=== PATIENT | female | born 1950 | race Caucasian/White ===

== ENCOUNTER 2017-11-04 10:19 | Emergency (ER) | payer MEDICARE ==
[2017-11-04 12:48] LABS: #Eosinphils 0.1 thou/uL (0.0-0.7); #Lymphocytes 1.4 thou/uL (1.20-3.40); #Monocytes 0.6 thou/uL (0.11-0.59); #Neutrophils 3.6 thou/uL (1.40-6.50); %Basophils 0.2 % (0.0-1.0); %Eosinophils 1.9 % (0.0-10.0); %Lymphocytes 23.5 % (21.0-51.0); %Monocytes 11.2 % (0.0-10.0); %Neutrophils 63.2 % (42.0-75.0); Hemoglobin 13.2 g/dL (12.0-16.0); Mean Corpuscular HGB CONC 32.2 g/dL (32.0-36.0); Mean Corpuscular Hemoglobin 28.6 pg (27.0-31.0); Mean Corpuscular Volume 88.7 fl (81.0-99.0); Mean Platelet Volume 7.7 fL (7.4-10.4); Platelet Count 215 thou/uL (130-400); Red Blood Cell (RBC) Count 4.64 mill/uL (4.20-5.40); White Blood Cell (WBC) Count 5.7 thou/uL (4.8-10.8)
[2017-11-04 13:06] LABS: ALT (SGPT) 30 U/L (8-55); AST (SGOT) 23 U/L (5-34); Albumin 4.1 g/dL (3.4-4.8); Alkaline Phosphatase 67 U/L (40-150); Anion Gap 14 mmol/L (10-20); BUN (Urea Nitrogen) 11 mg/dL (9.8-20.1); Bilirubin, Total 0.4 mg/dL (0.2-1.2); Calc. Creatinine Clearance 0 mL/min (70-130); Calcium 10.3 mg/dL (7.8-10.44); Carbon Dioxide 30 mmol/L (23-31); Chloride 98 mmol/L (98-107); Estimated GFR-MDRD 79; Globulin 2.7 g/dL (2.4-3.5); Glucose 103 mg/dL (80-115); Lipase 18 U/L (8-78); Protein, Total 6.8 g/dL (6.0-8.3); Sodium 138 mmol/L (136-145)
[2017-11-04] MEDS ORDERED: Ondansetron HCl/PF 4 MG/2 ML Vial ONE (13:22)
[2017-11-04 14:29] LABS: CKMB 0.5 ng/mL (0-6.6); Troponin I Less than 0.010 ng/mL (< 0.028)
[2017-11-04 14:56] LABS: Bilirubin Negative (Negative); Blood, Urine Negative (Negative); Clarity CLEAR (Clear); Glucose, Urine (Dipstick) Negative (Negative); Leukocyte Large (Negative); Nitrite Negative (Negative); Protein, Urine (Dipstick) Negative (Neg-Trace); Specific Gravity, Urine 1.008 (1.002-1.036); Urobilinogen 0.2 mg/dL (0.2-1.0)
[2017-11-04 14:58] LABS: Bacteria/HPF None Seen HPF (None Seen); Hyaline Casts/LPF 0-3 HYALINE CAST LPF (0-3 Hyaline); RBC/HPF 0-3 HPF (0-3); Squamous Epithelial 0-3 HPF (0-3); WBC/HPF 21-50 HPF (0-3)
--- NOTE | 2017-11-04 16:00 | RAD ---
CHEST PA AND LATERAL: 11/04/17 HISTORY: 67-year-old female with history of cough. COMPARISON: 11/02/17. FINDINGS: Stable mild increased linear and interstitial markings in the upper lung zones, right greater than le ft. Heart size is normal. No confluent pneumonia or overt edema or pleural effusions. IMPRESSION: Minimal stable increased markings bilaterally. No evidence for confluent pneumonia. POS: [facility]
--- NOTE | 2017-11-04 16:28 | CT ---
ABDOMEN AND PELVIC CT SCAN WITHOUT IV CONTRAST: 11/04/17 HISTORY: 67-year-old female with history of abdominal pain, nausea, vomiting and diarrhea. The lung bases appe ar clear. old granuloma calcifications are noted within the liver and spleen. Otherwise, the liver, g allbladder, pancreas, spleen, and adrenal glands are unremarkable. No renal calculus or acute obst ruction. Postoperative changes are noted at the lower lumbar spine including L4-5 and L5-S1. Moderate atherosclerotic changes of the aorta with some mild dilatation of the upper abdominal aorta up to 2. 4 cm and the lower abdominal aorta up to 2.5 cm. There does appear to be a defect in the left sided a nterior abdominal wall slightly above the level of the umbilicus with some herniated mesenteric fat b ut no evidence of bowel involvement. No large or small bowel obstruction or overt calculus. No CT kanika dence for acute appendicitis. IMPRESSION: No renal calculus or obstruction. No CT evidence for acute appendicitis. Left anterior abdominal w all defect with some herniated mesenteric fat. Minimal aneurysmal dilatation of the abdominal aorta. Other findings as above. No other significant acute process. POS: [facility]
--- NOTE | 2017-11-10 11:57 | EKG ---
Test Reason : Blood Pressure : / mmHG Vent. Rate : 082 BPM Atrial Rate : 082 BPM P-R Int : 178 ms QRS Dur : 072 ms QT Int : 366 ms P-R-T Axes : 055 029 047 degrees QTc Int : 427 ms Normal sinus rhythm Normal ECG Confirmed by KVNG BAIG M.D. ([id number]), video news editor LUCIA DUONG ([id number]) on 11/10/2017 11:56:08 AM Referred By: Confirmed By:KVNG BAIG M.D.
== END 2017-11-04 15:15 | disposition home or self-care (01) ==
LOC: ERS 10:19
DX: R11.2 Nausea with vomiting, unspecified (principal); R19.7 Diarrhea, unspecified; R05 Cough; K43.2 Incisional hernia without obstruction or gangrene; I10 Essential (primary) hypertension; Z79.899 Other long term (current) drug therapy
CPT/HCPCS: 36415; 71046; 74176; 80053; 81003; 81015; 82553; 83605; 83690; 84484; 85025; 85610; 93005; 96361; 96374; J2405

== ENCOUNTER 2017-12-19 14:10 | Outpatient (CLI) | payer MEDICARE | END 2017-12-19 14:11 | disposition home or self-care (01) | LOC: BICMAMMO 14:10 | PROVIDERS: ATTEND Family Medicine | DX: Z12.31 Encounter for screening mammogram for malignant neoplasm of breast (principal); Z80.3 Family history of malignant neoplasm of breast | CPT/HCPCS: 77063; 77067 ==

== ENCOUNTER 2018-03-18 01:32 | Inpatient (IN) | payer MEDICARE ==
[2018-03-18 02:16] LABS: #Basophils 0.1 thou/uL (0.0-0.2); #Eosinphils 0.2 thou/uL (0.0-0.7); #Lymphocytes 1.3 thou/uL (1.20-3.40); #Monocytes 0.7 thou/uL (0.11-0.59); #Neutrophils 5.8 thou/uL (1.40-6.50); %Basophils 0.6 % (0.0-1.0); %Eosinophils 2.3 % (0.0-10.0); %Lymphocytes 16.7 % (21.0-51.0); %Monocytes 8.2 % (0.0-10.0); %Neutrophils 72.2 % (42.0-75.0); Hemoglobin 12.8 g/dL (12.0-16.0); Mean Corpuscular Hemoglobin 29.8 pg (27.0-31.0); Mean Corpuscular Volume 87.6 fL (78.0-98.0); Mean Platelet Volume 7.1 fL (7.4-10.4); Platelet Count 240 thou/uL (130-400); RBC Distribution Width 12.4 % (11.5-14.5)
[2018-03-18 02:40] LABS: ALT (SGPT) 12 U/L (8-55); AST (SGOT) 15 U/L (5-34); Albumin 4.2 g/dL (3.4-4.8); Alkaline Phosphatase 55 U/L (40-150); Anion Gap 14 mmol/L (10-20); BUN (Urea Nitrogen) 9 mg/dL (9.8-20.1); Bilirubin, Total 0.4 mg/dL (0.2-1.2); CK (CPK) 58 U/L (29-168); Calc. Creatinine Clearance 0 mL/min (70-130); Calcium 9.3 mg/dL (7.8-10.44); Carbon Dioxide 23 mmol/L (23-31); Chloride 102 mmol/L (98-107); Estimated GFR-MDRD 80; Globulin 2.7 g/dL (2.4-3.5); Glucose 159 mg/dL (80-115); Lipase 9 U/L (8-78); Magnesium 2.1 mg/dL (1.6-2.6); Potassium 3.6 mmol/L (3.5-5.1); Protein, Total 6.9 g/dL (6.0-8.3); Sodium 135 mmol/L (136-145)
[2018-03-18 02:41] LABS: CKMB 1.4 ng/mL (0-6.6); Troponin I 0.112 ng/mL (< 0.028)
[2018-03-18] MEDS ORDERED: Fentanyl 100 MCG/2 ML VIAL ONE (04:14)
[2018-03-18] MEDS ORDERED: Enoxaparin Sodium 80 MG/0.8 ML SYRINGE ONE ×2 (04:14→04:18)
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
[2018-03-18 05:59] LABS: Troponin I 0.384 ng/mL (< 0.028)
[2018-03-18] MEDS ORDERED: Ondansetron ODT 4 MG TAB PO PRN (08:29)
[2018-03-18] MEDS ORDERED: Acetaminophen 325 MG TAB PO PRN (08:29)
[2018-03-18] MEDS ORDERED: Nitroglycerin 0.4 MG TAB (25 Tab Bottle) SL PRN (08:29)
[2018-03-18 08:40] LABS: Troponin I 0.551 ng/mL (< 0.028)
[2018-03-18 09:53] LABS: Bilirubin Negative (Negative); Blood, Urine Negative (Negative); Clarity CLEAR (Clear); Glucose, Urine (Dipstick) Negative (Negative); Leukocyte Negative (Negative); Nitrite Negative (Negative); Protein, Urine (Dipstick) Negative (Neg-Trace); Specific Gravity, Urine 1.005 (1.002-1.036); Urobilinogen 0.2 mg/dL (0.2-1.0); pH, Urine 7.5 (5.0-9.0)
--- NOTE | 2018-03-18 10:20 | RAD ---
PORTABLE AP CHEST XRAY: DATE: 03/18/18. HISTORY: Chest pain. COMPARISON: 11/04/17. FINDINGS: Cardiac silhouette and pulmonary vasculature are within normal limits for the portable technique of t he study. Lungs are clear. Vascular calcifications in the thoracic aorta. Osteopenia is present. IMPRESSION: No acute cardiopulmonary process. POS: [facility]
[2018-03-18 13:16] LABS: Critical Call Chem Troponin I RESULT DECREASING
[2018-03-18] MEDS ORDERED: Nitroglycerin 0.4 MG TAB (25 Tab Bottle) ONE (13:32)
[2018-03-18 17:28] VITALS: BMI 28.1
[2018-03-18] MEDS ORDERED: clonazePAM 0.5 MG TAB PO PRN (18:55)
[2018-03-18] MEDS ORDERED: Carvedilol 6.25 MG TAB PO SCH (19:30)
[2018-03-18] MEDS: Famotidine 20 MG TAB PO SCH (19:40)
[2018-03-18] MEDS: Atorvastatin Calcium 20 MG TAB PO SCH (19:41)
--- NOTE | 2018-03-19 06:02 | PDOC.CTH ---
Cardiology Progress Note - Subjective Feels better. No CP. EF normal - Objective Vital Signs Temp Pulse Resp BP BP BP Pulse Ox 03/19/18 04:03 98.7 F 87 14 93/56 L 94 L 03/18/18 23:45 98.4 F 88 16 92/53 L 95 03/18/18 20:29 94 108/68 03/18/18 20:14 98.2 F 99 24 H 82/51 L 96 03/18/18 19:40 114/72 03/18/18 19:14 97.6 F 100 18 Weight 163 lb 9.6 oz 03/17/18 03/18/18 03/19/18 06:59 06:59 06:59 Intake Total 720 Output Total 400 Balance 320 - Physical Examination General/Neuro: alert & oriented x3 Neck: carotid US brisk Lungs: CTA, unlabored respirations Heart: PMI normal, RRR Abdomen: no HSM, NT/ND, soft Extremities: + femoral B - Labs Result Diagrams: 03/18/18 01:57 03/18/18 01:57 Troponin/CKMB CK-MB (CK-2) 1.4 ng/mL (0-6.6) 03/18/18 01:57 Troponin I 0.490 ng/mL (< 0.028) H* 03/18/18 12:37 - Assessment/Plan 1. CP 2. Increassed troponin Pt with previous troponin elevated (>3) during last hospitalization with mild CAD. This hopsitalization with negative CKMB and mild increase troponin. Leigh demand Continue conservatvie treatment Review echo. EF normal Home tomrrow NO New recommendations Given low BP, change ACEI/HCTZ to low dose ACEI
[2018-03-19] MEDS ORDERED: Lisinopril/Hydrochlorothiazide 20 mg/12.5 mg Tablet PO SCH (09:00)
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
[2018-03-19] MEDS: Lisinopril 5 MG TAB PO SCH (13:48)
[2018-03-19] MEDS: Famotidine 20 MG TAB PO SCH ×2 (13:49→20:24)
[2018-03-19] MEDS: PARoxetine 20 MG TAB PO SCH (13:49)
[2018-03-19] MEDS: Carvedilol 6.25 MG TAB PO SCH ×2 (13:49→20:24)
[2018-03-19] MEDS: Atorvastatin Calcium 20 MG TAB PO SCH (20:24)
[2018-03-19] MEDS ORDERED: Milk Of Magnesia 30 ML UDCUP PO PRN (21:15)
[2018-03-20 08:11] VITALS: TEMP 98
[2018-03-20] MEDS: Carvedilol 6.25 MG TAB PO SCH (08:32)
[2018-03-20 08:33] VITALS: BP 122/75
[2018-03-20] MEDS: PARoxetine 20 MG TAB PO SCH (08:33)
[2018-03-20] MEDS: Famotidine 20 MG TAB PO SCH (08:33)
[2018-03-20] MEDS: Lisinopril 5 MG TAB PO SCH (08:33)
--- NOTE | 2018-03-20 08:46 | PDOC.CTH ---
Cardiology Progress Note - Subjective No further CP present. - Objective Vital Signs Temp Pulse Resp BP BP Pulse Ox 03/20/18 08:33 82 03/20/18 08:32 122/75 03/20/18 08:00 98.0 F 82 16 03/20/18 07:09 98.7 F 80 18 118/69 94 L 03/20/18 04:10 98.0 F 82 16 119/60 93 L 03/20/18 00:00 98.2 F 72 16 94/53 L 93 L Weight 159 lb 03/19/18 03/20/18 03/21/18 06:59 06:59 06:59 Intake Total 720 Output Total 1600 Balance -880 - Physical Examination General/Neuro: alert & oriented x3, NAD Neck: carotid US brisk, no JVD present Lungs: CTA, unlabored respirations Heart: RRR Abdomen: NT/ND, soft Extremities: + edema B - Labs Result Diagrams: 03/18/18 01:57 03/18/18 01:57 Troponin/CKMB CK-MB (CK-2) 1.4 ng/mL (0-6.6) 03/18/18 01:57 Troponin I 0.490 ng/mL (< 0.028) H* 03/18/18 12:37 - Assessment/Plan CP Resolved. Increased troponin but negative CKMB. Pt with previous elevated troponin. Recent cath with mild CAD. Likely driven by increase in stressors as previously described. Ok to dc form my standpoint. Recommend BB and statins treatment and low dose ASA. Consider low dose imdur 30mg QAM
--- NOTE | 2018-03-20 09:11 | PDOC.FM ---
- Subjective Subjective: No acute events overnight. Pt reports resolution of CP. Denies sob, nvd. Reports some constipation, denies abdominal pain and diaphoresis. Cleared from cards standpoint. She has a plan to go home and pack her belongings and ultimately move in with her son who is driving down to pick her up from home. She feels safe and comfortable going home temporarily and is ready to leave the hospital. - Objective Vital Signs & Weight: Vital Signs (12 hours) Temp Pulse Resp BP BP Pulse Ox 03/20/18 08:33 82 03/20/18 08:32 122/75 03/20/18 08:00 98.0 F 82 16 03/20/18 07:09 98.7 F 80 18 118/69 94 L 03/20/18 04:10 98.0 F 82 16 119/60 93 L 03/20/18 00:00 98.2 F 72 16 94/53 L 93 L Weight Weight 72.121 kg I&O: 03/19/18 03/20/18 03/21/18 06:59 06:59 06:59 Intake Total 720 Output Total 1600 Balance -880 Result Diagrams: 03/18/18 01:57 03/18/18 01:57 <Mohit Granger - Last Filed: 03/20/18 09:09> - Objective Vital Signs & Weight: Vital Signs (12 hours) Temp Pulse Resp BP BP Pulse Ox 03/20/18 08:33 82 03/20/18 08:32 122/75 03/20/18 08:00 98.0 F 82 16 03/20/18 07:09 98.7 F 80 18 118/69 94 L 03/20/18 04:10 98.0 F 82 16 119/60 93 L Weight Weight 72.121 kg I&O: 03/19/18 03/20/18 03/21/18 06:59 06:59 06:59 Intake Total 720 Output Total 1600 Balance -880 Result Diagrams: 03/18/18 01:57 03/18/18 01:57 <Leo Blevins - Last Filed: 03/20/18 13:23> Phys Exam - Physical Examination Constitutional: NAD HEENT: PERRLA Neck: no nodes, no JVD Respiratory: no wheezing, no rales, no rhonchi, clear to auscultation bilateral Cardiovascular: RRR, no significant murmur, no rub Gastrointestinal: soft, non-tender, positive bowel sounds Musculoskeletal: no edema, pulses present Neurological: non-focal, moves all 4 limbs Psychiatric: normal affect <Mohit Granger - Last Filed: 03/20/18 09:09> Dx/Plan (1) NSTEMI (non-ST elevated myocardial infarction) Code(s): I21.4 - NON-ST ELEVATION (NSTEMI) MYOCARDIAL INFARCTION Status: Acute (2) Takotsubo cardiomyopathy Code(s): I51.81 - TAKOTSUBO SYNDROME Status: Acute (3) Hyperlipidemia Code(s): E78.5 - HYPERLIPIDEMIA, UNSPECIFIED Status: Acute (4) Hypertension Code(s): I10 - ESSENTIAL (PRIMARY) HYPERTENSION Status: Acute - Plan Plan: 1) NSTEMI: r/o, likley 2/2 takotsubo CM, no elevation of CK-MB - pt is asymptomatic and BP has normalized - stable for DC to home with plan to move out and live with sons 2) Takotsubo: -stress induced and acute stressor resolved - ok for dc to home - asa, BB, statin and zaida for management of comorbidities 3) HTN: cont current meds 4) HLD: Low dose statin Dispo: ok for dc to home with plan in place to live with her biological children from here forward <Mohit Granger - Last Filed: 03/20/18 09:09> Attending Addendum - Attending Addendum Date/Time: 03/20/18 1320 I personally evaluated the patient and discussed the management with Dr. Granger I agree with the History, Examination, Assessment and Plan documented above with any addition or exceptions noted below.Reported echocardiogam with near normal EF would expect if Tokotsubo CM a more transiently depressed EF, regardless stable to dismiss home with ACEI, BB, Statin and ASA appreciate Cardiology recommendations. Patient states she has plans to relocate to [place], [place] to live with son and is aware of a Charge Machine Operator Dr Baugh who can provide continuity of care. <Leo Blevins - Last Filed: 03/20/18 13:23>
[2018-03-20] MEDS ORDERED: Aspirin 81 mg Enteric Coated Tablet PO SCH (09:15)
[2018-03-21] MEDS ORDERED: Aspirin 81 mg Enteric Coated Tablet PO SCH (09:00)
== END 2018-03-20 12:34 | disposition home or self-care (01) | DRG 316 ==
LOC: ERS 01:32 → 2SW 16:16 → OBSVTOIN 03-19 11:09
PROVIDERS: ADMIT Family Medicine; ATTEND Family Medicine
DX: I51.81 Takotsubo syndrome (principal); I10 Essential (primary) hypertension; E78.5 Hyperlipidemia, unspecified; F41.9 Anxiety disorder, unspecified; I25.10 Atherosclerotic heart disease of native coronary artery without angina pectoris; Z88.0 Allergy status to penicillin; Z88.7 Allergy status to serum and vaccine; Z88.8 Allergy status to other drugs, medicaments and biological substances; Z79.899 Other long term (current) drug therapy
CPT/HCPCS: 36415; 71045; 80053; 81003; 82553; 83690; 83735; 84484; 85025; 93005; 93306; 93798; 94760; 96372; 96374; J1650; J3010

== ENCOUNTER 2018-04-24 10:47 | Inpatient (IN) | payer MEDICARE ==
[2018-04-24 11:30] LABS: Hemoglobin 12.6 g/dL (12.0-16.0); Mean Corpuscular HGB CONC 32.3 g/dL (32.0-36.0); Mean Corpuscular Hemoglobin 29.2 pg (27.0-31.0); Mean Corpuscular Volume 90.3 fL (78.0-98.0); Red Blood Cell (RBC) Count 4.33 mill/uL (4.20-5.40); White Blood Cell (WBC) Count 6.2 thou/uL (4.8-10.8)
[2018-04-24 11:31] LABS: Mean Platelet Volume 7.5 fL (7.4-10.4); Platelet Count 222 thou/uL (130-400); RBC Distribution Width 12.9 % (11.5-14.5)
[2018-04-24 11:51] LABS: CKMB 0.7 ng/mL (0-6.6); Troponin I Less than 0.010 ng/mL (< 0.028)
[2018-04-24 11:56] LABS: Band 1 % (5-11); Eosinophils 3 % (0-10); Lymphocytes 38 % (21-51); Monocytes 4 % (0-10); Neutrophil 53 % (42-75)
[2018-04-24 11:57] LABS: MDiff Complete? YES
[2018-04-24 12:34] LABS: Bilirubin Negative (Negative); Blood, Urine Negative (Negative); Clarity CLEAR (Clear); Glucose, Urine (Dipstick) Negative (Negative); Leukocyte Moderate (Negative); Nitrite Negative (Negative); Protein, Urine (Dipstick) Negative (Neg-Trace); Specific Gravity, Urine 1.008 (1.002-1.036); Urobilinogen 0.2 mg/dL (0.2-1.0)
[2018-04-24 12:36] LABS: Bacteria/HPF None Seen HPF (None Seen); Hyaline Casts/LPF 0-3 HYALINE CAST LPF (0-3 Hyaline); Pathc Cast-AUWi Flag 0.14 (0-2.49); RBC/HPF 0-3 HPF (0-3); Squamous Epithelial 0-3 HPF (0-3)
[2018-04-24 12:36] LABS: ALT (SGPT) 14 U/L (8-55); AST (SGOT) 17 U/L (5-34); Albumin 4.4 g/dL (3.4-4.8); Alkaline Phosphatase 61 U/L (40-150); Anion Gap 18 mmol/L (10-20); BUN (Urea Nitrogen) 10 mg/dL (9.8-20.1); Bilirubin, Total 0.8 mg/dL (0.2-1.2); Calc. Creatinine Clearance 0 mL/min (70-130); Calcium 9.3 mg/dL (7.8-10.44); Carbon Dioxide 19 mmol/L (23-31); Chloride 107 mmol/L (98-107); Estimated GFR-MDRD 74; Globulin 2.6 g/dL (2.4-3.5); Glucose 94 mg/dL (80-115); Lipase 11 U/L (8-78); Potassium 4.2 mmol/L (3.5-5.1); Sodium 140 mmol/L (136-145)
--- NOTE | 2018-04-24 13:04 | RAD ---
RADIOGRAPH CHEST 1 VIEW: HISTORY: A 68-year-old female with chest pain. FINDINGS: There are no air space densities, pulmonary edema, pneumothorax, or cardiomegaly. The lateral costop hrenic angles are sharp. IMPRESSION: No acute cardiopulmonary findings. jn [] POS: [facility]
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
[2018-04-24 15:35] LABS: Troponin I Less than 0.010 ng/mL (< 0.028)
[2018-04-24] MEDS ORDERED: Acetaminophen 325 MG TAB PO PRN (15:53)
[2018-04-24] MEDS ORDERED: Ondansetron ODT 4 MG TAB SL PRN (15:53)
[2018-04-24] MEDS ORDERED: Ondansetron HCl/PF 4 MG/2 ML Vial IVP PRN (15:53)
[2018-04-24] MEDS ORDERED: Nitroglycerin 0.4 MG TAB (25 Tab Bottle) SL PRN (16:16)
[2018-04-24] MEDS ORDERED: Lidocaine 2% Viscous Solution 20 ML, Aluminum & Magnesium Hydroxide 30 ML, Donnatal Eli... SSW SCH (17:00)
[2018-04-24 17:39] LABS: Troponin I Less than 0.010 ng/mL (< 0.028)
[2018-04-24 18:30] VITALS: BMI 28.0
[2018-04-24] MEDS ORDERED: Milk Of Magnesia 30 ML UDCUP PO PRN (18:34)
[2018-04-24] MEDS ORDERED: clonazePAM 0.5 MG TAB PO PRN (18:34)
[2018-04-24] MEDS ORDERED: hydrALAZINE 20 MG/ML VIAL SLOW IVP PRN (18:35)
[2018-04-24 19:10] LABS: Amphetamine Not Detected (NotDetected); Barbiturates Screen Not Detected (NotDetected); Benzodiazepine Screen Not Detected (NotDetected); Cocaine Metabolite Screen Not Detected (NotDetected); Medtox Control Line Valid? VALID (VALID); Medtox Reader # READER 4; Methadone Not Detected (NotDetected); Methamphetamine Not Detected (NotDetected); Opiate Screen Not Detected (NotDetected); Oxycodone Screen Not Detected (NotDetected); Phencyclidine (PCP) Not Detected (NotDetected); THC/Cannabinoid Screen Not Detected (NotDetected); Tricyclic Screen Not Detected (NotDetected)
[2018-04-24] MEDS: Atorvastatin Calcium 20 MG TAB PO SCH (21:19)
--- NOTE | 2018-04-25 06:28 | PDOC.FM ---
- Subjective Subjective: Pt feels well this morning. reports that CP feels better and denies any palpitations or sob. Also complains today of headache in back of the head radiating to front of constant nature x1 month associated increased loss of balance at home. denies vertigo and dizziness. No other complaints at this time. ros: no fevers/chills, cp , no palpitations no sob no cough, no n/v - Objective MAR Reviewed: Yes Vital Signs & Weight: Vital Signs (12 hours) Temp Pulse Resp BP Pulse Ox 04/25/18 04:00 97.9 F 71 18 102/55 L 94 L 04/24/18 21:18 98.4 F 98 16 121/76 97 04/24/18 18:35 88 132/75 Weight Weight 71.713 kg I&O: 04/23/18 04/24/18 04/25/18 06:59 06:59 06:59 Intake Total 250 Output Total 800 Balance -550 Result Diagrams: 04/25/18 06:12 04/25/18 06:11 <Som Méndez - Last Filed: 04/25/18 09:03> - Objective Vital Signs & Weight: Vital Signs (12 hours) Temp Pulse Resp BP Pulse Ox 04/25/18 12:15 97.9 F 78 16 134/69 95 04/25/18 11:24 71 04/25/18 08:05 98.2 F 71 16 137/70 94 L 04/25/18 07:28 95 Weight Weight 71.713 kg I&O: 04/24/18 04/25/18 04/26/18 06:59 06:59 06:59 Intake Total 250 Output Total 800 Balance -550 Result Diagrams: 04/25/18 06:12 04/25/18 06:11 <Amanda Shah - Last Filed: 04/25/18 17:00> Phys Exam - Physical Examination Constitutional: NAD HEENT: moist MMs, sclera anicteric Respiratory: no wheezing, no rales Cardiovascular: RRR, no significant murmur Gastrointestinal: soft, non-tender Musculoskeletal: pulses present Neurological: moves all 4 limbs Psychiatric: normal affect Skin: no rash, normal turgor <Som Méndez - Last Filed: 04/25/18 09:03> Dx/Plan (1) Stable angina Code(s): I20.8 - OTHER FORMS OF ANGINA PECTORIS Status: Acute (2) Anxiety Code(s): F41.9 - ANXIETY DISORDER, UNSPECIFIED Status: Acute (3) Hypertension Code(s): I10 - ESSENTIAL (PRIMARY) HYPERTENSION Status: Acute (4) Takotsubo cardiomyopathy Code(s): I51.81 - TAKOTSUBO SYNDROME Status: Chronic - Plan Plan: Stable angina, rule out ACS A- Patient admitted 1 month ago for similar complaint. Cardiology was consulted at that time and attributed this to life stressors. Recommended BB, statin, and ASA at that time. Cath done 1 year ago showed 10% stenosis of LAD. troponin neg x3. EKG showed NSR P- monitor on telemetry - could consider NM stress test this am - Nitro prn - consult cardiology today Headache A- possible migraine P- prn pain meds -will consider imaging based on neuro exam today History of Takasubo cardiomyopathy - last echo done 1 month ago showed EF 55-60%, diastolic dysfunction HTN - continue home lisinopril. will hold beta foster for now in case stress test should be performed tomorrow HLD - continue home atorvastatin Anxiety - continue home clonazepam <Som Méndez - Last Filed: 04/25/18 09:03> Attending Addendum - Attending Addendum Date/Time: 04/25/18 3086 I personally evaluated the patient and discussed the management with Dr. Méndze. I agree with the History, Examination, Assessment and Plan documented above with any addition or exceptions noted below. The patient presented with chest pain. The patient states pain is improved this morning. Will discuss with her oracle soa developer whether she needs a stress test or additional imaging. She also notes a new different type of headache for almost a month and possible some memory problems. Will get CT brain. <Amanda Shah - Last Filed: 04/25/18 17:00>
[2018-04-25 06:39] LABS: #Eosinphils 0.2 thou/uL (0.0-0.7); #Lymphocytes 1.2 thou/uL (1.20-3.40); #Monocytes 0.6 thou/uL (0.11-0.59); #Neutrophils 3.8 thou/uL (1.40-6.50); %Basophils 0.4 % (0.0-1.0); %Eosinophils 2.8 % (0.0-10.0); %Lymphocytes 20.6 % (21.0-51.0); %Monocytes 10.7 % (0.0-10.0); %Neutrophils 65.5 % (42.0-75.0); Hemoglobin 11.9 g/dL (12.0-16.0); Mean Corpuscular HGB CONC 33.1 g/dL (32.0-36.0); Mean Corpuscular Hemoglobin 29.7 pg (27.0-31.0); Mean Corpuscular Volume 89.8 fL (78.0-98.0); Mean Platelet Volume 7.5 fL (7.4-10.4); Platelet Count 219 thou/uL (130-400); RBC Distribution Width 12.6 % (11.5-14.5); Red Blood Cell (RBC) Count 4.01 mill/uL (4.20-5.40); White Blood Cell (WBC) Count 5.8 thou/uL (4.8-10.8)
[2018-04-25 06:56] LABS: Anion Gap 12 mmol/L (10-20); BUN (Urea Nitrogen) 13 mg/dL (9.8-20.1); Calc. Creatinine Clearance 78 mL/min (70-130); Calcium 9.3 mg/dL (7.8-10.44); Carbon Dioxide 27 mmol/L (23-31); Cardiac Risk 3.3 (Less than 4.5); Chloride 104 mmol/L (98-107); Cholesterol 143 mg/dl (< 200 Desired); Estimated GFR-MDRD 73; Glucose 91 mg/dL (80-115); HDL Cholesterol 44 mg/dL (>60 Neg Risk); LDL Cholesterol, Calculated 87 mg/dL; Magnesium 2.2 mg/dL (1.6-2.6); Phosphorus 3.4 mg/dL (2.3-4.7); Potassium 3.9 mmol/L (3.5-5.1); Sodium 139 mmol/L (136-145); Triglycerides 58 mg/dL (Less than 150)
[2018-04-25] MEDS ORDERED: Lisinopril 5 MG TAB PO SCH (09:00)
[2018-04-25] MEDS: Aspirin 81 mg Enteric Coated Tablet PO SCH (11:24)
[2018-04-25] MEDS: Enoxaparin Sodium 40 MG/0.4 ML SYRINGE SC SCH (11:24)
[2018-04-25] MEDS ORDERED: Acetaminophen 325 MG TAB PO PRN (11:27)
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
--- NOTE | 2018-04-25 13:56 | CT ---
BRAIN CT WITHOUT IV CONTRAST: HISTORY: A 68-year-old female with a history of new onset headache with neurologic symptoms. FINDINGS: No focal mass or midline shift. No intraaxial or extraaxial hemorrhage. The sinuses and mastoids ar e clear of acute process. There is some atrophy and chronic white matter ischemic changes, particula rly in the centrum semiovale and subcortical regions. IMPRESSION: Scattered low attenuation foci in the central semiovale and subcortical regions, evidence for chronic white matter ischemic change. No mass, bleed, or other acute process. POS: [facility]
[2018-04-25] MEDS: Carvedilol 3.125 MG TAB PO SCH (17:13)
[2018-04-25] MEDS: Atorvastatin Calcium 20 MG TAB PO SCH (20:12)
--- NOTE | 2018-04-26 05:56 | PDOC.FM ---
- Objective Vital Signs & Weight: Vital Signs (12 hours) Temp Pulse Resp BP Pulse Ox 04/26/18 04:00 97.7 F 68 18 117/68 97 04/26/18 02:58 95 04/25/18 20:04 98.8 F 83 16 132/79 96 Weight Weight 71.713 kg I&O: 04/24/18 04/25/18 04/26/18 06:59 06:59 06:59 Intake Total 250 Output Total 800 Balance -550 Result Diagrams: 04/25/18 06:12 04/25/18 06:11 <Som Méndez - Last Filed: 04/26/18 05:57> - Objective Vital Signs & Weight: Weight Weight 71.713 kg Result Diagrams: 04/25/18 06:12 04/25/18 06:11 <Amanda Shah - Last Filed: 04/27/18 15:54> Dx/Plan (1) Stable angina Code(s): I20.8 - OTHER FORMS OF ANGINA PECTORIS Status: Acute (2) Anxiety Code(s): F41.9 - ANXIETY DISORDER, UNSPECIFIED Status: Acute (3) Hypertension Code(s): I10 - ESSENTIAL (PRIMARY) HYPERTENSION Status: Acute (4) Takotsubo cardiomyopathy Code(s): I51.81 - TAKOTSUBO SYNDROME Status: Chronic - Plan Plan: Stable angina, rule out ACS A- Patient admitted 1 month ago for similar complaint. Cardiology was consulted at that time and attributed this to life stressors. Recommended BB, statin, and ASA at that time. Cath done 1 year ago showed 10% stenosis of LAD. troponin neg x3. EKG showed NSR. cardiology consulted yesterday recommended repeat Echo and discharge home with outpt f/u if echo is unconcerning P- monitor on telemetry - await echo results - Nitro prn - likely DC today Headache A- possible migraine, CT brain showed no signs of acute problems P- prn pain meds History of Takasubo cardiomyopathy - last echo done 1 month ago showed EF 55-60%, diastolic dysfunction - repeat echo today HTN - continue home lisinopril and bb HLD - continue home atorvastatin Anxiety - continue home clonazepam <Som Méndez - Last Filed: 04/26/18 05:57> Attending Addendum - Attending Addendum Date/Time: 04/26/18 1054 I personally evaluated the patient and discussed the management with Dr. Méndez. I agree with the History, Examination, Assessment and Plan documented above with any addition or exceptions noted below. The patient's echo results are stable. Patient is feeling better and we will discharge home. <Amanda Shah - Last Filed: 04/27/18 15:54>
[2018-04-26 07:54] VITALS: TEMP 99.2
[2018-04-26] MEDS ORDERED: Lisinopril 5 MG TAB PO SCH (09:00)
[2018-04-26] MEDS: Enoxaparin Sodium 40 MG/0.4 ML SYRINGE SC SCH (09:37)
[2018-04-26] MEDS: Aspirin 81 mg Enteric Coated Tablet PO SCH (09:38)
[2018-04-26] MEDS: Carvedilol 3.125 MG TAB PO SCH (09:38)
[2018-04-26 20:24] VITALS: BP 134/72
== END 2018-04-26 13:40 | disposition home or self-care (01) | DRG 311 ==
LOC: ERS 10:47 → 2NO 15:40
PROVIDERS: ADMIT Family Medicine; ATTEND Family Medicine
DX: I20.9 Angina pectoris, unspecified (principal); I51.81 Takotsubo syndrome; I10 Essential (primary) hypertension; E78.5 Hyperlipidemia, unspecified; M19.90 Unspecified osteoarthritis, unspecified site; M81.0 Age-related osteoporosis without current pathological fracture
CPT/HCPCS: 36415; 70450; 71045; 80048; 80053; 80061; 80306; 81003; 81015; 82553; 83690; 83735; 84100; 84443; 84484; 85025; 93005; 93306; 94760; J1650

== ENCOUNTER 2025-06-21 23:26 | Emergency (ER) | payer OTHER ==
[2025-06-22] LABS: #Basophils 0.09 10x3/uL (0.0-0.2); #Eosinophils 0.26 10x3/uL (0.0-0.7); #Monocytes 0.83 10x3/uL (0.11-0.59); #Neutrophils 7.69 10x3/uL (1.40-6.50); %Basophils 0.8 % (0.0-1.0); %Eosinophils 2.3 % (0.0-10.0); %Lymphocytes 19.7 % (21.0-51.0); %Monocytes 7.5 % (0.0-10.0); %Neutrophils 69.3 % (42.0-75.0); Hematocrit 35.1 % (36.0-47.0); Hemoglobin 11.1 g/dL (12.0-16.0); Mean Corpuscular Hemoglobin 27.6 pg (27.0-31.0); Mean Corpuscular Volume 87.3 fL (78.0-98.0); Platelet Count 299 10x3/uL (130-400); Red Blood Cell (RBC) Count 4.02 mill/uL (4.20-5.40); White Blood Cell (WBC) Count 11.09 10x3/uL (4.8-10.8)
[2025-06-22 00:10] LABS: ALT (SGPT) 16 U/L (Less than 34); AST (SGOT) 21 U/L (11-34); Albumin 3.7 g/dL (3.1-4.5); Alkaline Phosphatase 64 U/L (40-110); Anion Gap 15 mmol/L (10-20); BUN (Urea Nitrogen) 21 mg/dL (9.8-20.1); Bilirubin, Total 0.3 mg/dL (0.3-1.2); Calc. Creatinine Clearance 0 mL/min (70-130); Calcium 9.5 mg/dL (7.8-10.44); Carbon Dioxide 25 mmol/L (23-31); Chloride 102 mmol/L (98-107); Globulin 3.0 g/dL (2.4-3.5); Glucose 155 mg/dL (83-110); Potassium 3.9 mmol/L (3.5-5.1); Sodium 138 mmol/L (136-145)
[2025-06-22] MEDS ORDERED: Metoclopramide HCl 10 MG (2 mL) VIAL ONE (02:45)
== END 2025-06-22 07:09 | disposition home or self-care (01) ==
LOC: ERS 23:26
DX: R42 Dizziness and giddiness (principal); R29.700 NIHSS score 0; I10 Essential (primary) hypertension; E11.9 Type 2 diabetes mellitus without complications; I25.2 Old myocardial infarction
CPT/HCPCS: 70450; 71045; 72125; 80053; 83880; 84484; 85025; 93005; 94760; J2765; 96365; 96366